=== PATIENT | male | born 1955 | race Hispanic/Latino ===

== ENCOUNTER → 2024-04-07 | Day surgery (SDC) | payer MEDICARE ==
[~2024-04-07] MED LIST: Sodium Bicarbonate 2.5 MEQ/5 ML SDV ONE
[2024-04-07 11:02] VITALS: BP 152/72; TEMP 96.6
[2024-04-07 11:02] LABS: INR-International Normal Ratio 1.3; Prothrombin Time 13.4 sec (9.5-12.1)
== END ==
LOC: CSHULT 09:38
PROVIDERS: ATTEND Physician Assistant Medical
DX: K22.6 Gastro-esophageal laceration-hemorrhage syndrome (principal); K74.60 Unspecified cirrhosis of liver; F10.10 Alcohol abuse, uncomplicated; Z86.19 Personal history of other infectious and parasitic diseases; Z91.199 Patient's noncompliance with other medical treatment and regimen due to unspecified reason; G20.A1 Parkinson's disease without dyskinesia, without mention of fluctuations; K72.90 Hepatic failure, unspecified without coma; R60.0 Localized edema; R18.8 Other ascites
CPT/HCPCS: 76705; 85610

== ENCOUNTER 2024-04-21 09:04 | Day surgery (SDC) | payer MEDICARE ==
[2024-04-21 09:32] VITALS: BP 168/80; TEMP 98.6
== END 2024-04-21 09:50 | disposition home or self-care (01) ==
LOC: CSHULT 09:04
PROVIDERS: ATTEND Physician Assistant Medical
DX: K74.60 Unspecified cirrhosis of liver (principal); R18.8 Other ascites; Z53.8 Procedure and treatment not carried out for other reasons; F10.10 Alcohol abuse, uncomplicated; K22.6 Gastro-esophageal laceration-hemorrhage syndrome; G20.A1 Parkinson's disease without dyskinesia, without mention of fluctuations; K72.90 Hepatic failure, unspecified without coma; Z91.199 Patient's noncompliance with other medical treatment and regimen due to unspecified reason; Z86.19 Personal history of other infectious and parasitic diseases
CPT/HCPCS: 76705